=== PATIENT | female | born 2005 | race Caucasian/White ===

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

== ENCOUNTER 2024-01-16 06:36 | Emergency (ER) | payer MEDICAID, SELFPAY ==
--- NOTE | ~2024-01-16 | XR_ITS ---
EXAMINATION: XR ANKLE, LEFT CLINICAL INFORMATION: Left ankle pain COMPARISON: Left ankle x-ray on 07/14/2016 TECHNIQUE: AP, lateral, and mortise views of the left ankle. FINDINGS: BONES: Bony structures are intact. There is no focal bone destruction or periosteal reaction seen. JOINTS: Alignment of joints is normal. SOFT TISSUE: Soft tissue is normal. No radiopaque foreign body or abnormal air collection is seen. XR/XR ankle LT 2V IMPRESSION: 1. Normal x-rays of left ankle. No fracture or dislocation or signs of osteomyelitis are found.
[2024-01-16 06:42] VITALS: BP 112/83; PULSE 70; RESP 18; TEMP 36.6; O2SAT 99; BMI 29.4
--- NOTE | 2024-01-16 07:02 | PC.NURSE ---
micha arrives via external triage with cc of left ankle pain. patient states she rolled her ankle on monday and since then it has become swollen and painful to the touch. patient provided with ice pack, CMS in tact, foot elevated by this RN with towel roll. offering no other complaints at this time. awaiting MD hoover
--- OUTSIDE RECORDS SUMMARY | 2024-01-16 07:03 | XMS_ITS | Continuity of Care Document ---
Author Organization [facility] Address [address] [place] [address]- Care Team Providers Care Visitor Services Technician Name Role Phone Margarita Anneliese ASKEW Primary Care Physician [phone] Encounter [facility] Date(s): 07/22/21 - 08/21/21 [facility] [address] [place] [id number]- Attending Physician: Mohinder Vicente Admitting Physician: Mohinder Vicente Referring Physician: AdmtrMohinder Allergies, Adverse Reactions, Alerts Substance Reaction Severity Status aspirin Active Immunizations Given and Recorded Vaccine Date Status Refusal Reason Human Papillomavirus Vaccine 10/20/15 Given Meningococcal Conjugate Vaccine 10/20/15 Given tetanus/diphtheria/pertussis, acel(Tdap) 10/20/15 Given influenza virus vaccine, inactivated 04/07/15 Give n influenza virus vaccine, inactivated 08/18/14 Give n Hepatitis A Pediatric Vaccine 01/13/11 Recorded Hepatitis A Pediatric Vaccine 09/15/05 Recorded diphtheria/tetanus/pertussis, acel(DTaP) 10/15/08 Recorded diphtheria/tetanus/pertussis, acel(DTaP) 12/16/05 Recorded diphtheria/tetanus/pertussis, acel(DTaP) 03/21/05 Recorded diphtheria/tetanus/pertussis, acel(DTaP) 01/19/05 Recorded diphtheria/tetanus/pertussis, acel(DTaP) 04 Recorded Varicella Virus Vaccine 09/19/08 Recorded Varicella Virus Vaccine 09/15/05 Recorded Measles/Mumps/Rubella Virus Vaccine 09/19/08 Recor ded Measles/Mumps/Rubella Virus Vaccine 09/15/05 Recor ded Poliovirus Vaccine, Inactivated 09/19/08 Recorded Poliovirus Vaccine, Inactivated 03/21/05 Recorded Poliovirus Vaccine, Inactivated 01/19/05 Recorded Poliovirus Vaccine, Inactivated 04 Recorded haemophilus b conjugate (PRP-OMP)vaccine 12/16/05 Recorded haemophilus b conjugate (PRP-OMP)vaccine 01/19/05 Recorded haemophilus b conjugate (PRP-OMP)vaccine 04 Recorded pneumococcal 7-valent vaccine 12/16/05 Recorded pneumococcal 7-valent vaccine 03/21/05 Recorded pneumococcal 7-valent vaccine 01/19/05 Recorded pneumococcal 7-valent vaccine 04 Recorded hepatitis B pediatric vaccine 05/19/05 Recorded hepatitis B pediatric vaccine 04 Recorded hepatitis B pediatric vaccine 04 Recorded Medications Advair HFA 115 mcg / 21 mcg 2 puffs, Inhalation, 2 times a day, # 1 each, 2 Refills, Maintenance, 05/26/21 14:41:00 EST, Aerosol, [facility]/pharmacy #[id number], Partial fill upon patient request if the prescription is for a schedule II opioid drug., 2 puffs Inhalation 2 times a day, 159.5,... Start Date: 05/26/21 Status: Ordered Aerochamber w/Mask (Medium) See Instructions, # 2 each, Refills 0, Tot. Refills 0, Maintenance, use with albuterol inhaler as needed, 09/22/14 13:36:23, Compound Start Date: 09/22/14 Status: Ordered cetirizine 10 mg oral tablet 1 tablet = 10 mg, By Mouth, Daily, # 30 tablet, 2 Refills, Maintenance, 11/03/20 15:43:00 EDT, Tablet, [facility]/pharmacy #[id number], 159.5, cm, 11/03/20 10:56:00 EDT, Height, 70.2, kg, 11/03/20 10:56:00 EDT, Dry Weight Start Date: 11/03/20 Status: Ordered fluticasone 50 mcg/inh nasal spray See Instructions, SPRAY 1 SPRAY INTO EACH NOSTRIL EVERY MORNING, # 16 mL, 2 Refills, [id number], 30, SPRAY 1 SPRAY INTO EACH NOSTRIL EVERY MORNING, 159.5, cm, 11/03/20 10:56:00 EDT, Height, 70.2, kg, 11/03/20 10:56:00 EDT, Dry Weight Start Date: 08/17/21 Status: Ordered Hydrocerin topical lotion 1 application, Topically, 2 times a day, PRN for dry skin, # 480 mL, 0 Refills, Maintenance, 09/24/15 11:33:38, Lotion, 1 application Topically 2 times a day,PRN:for dry skin Start Date: 09/24/15 Status: Ordered montelukast 5 mg oral tablet, chewable 1, tablet, By Mouth, Daily in PM, CHEW., # 30 tablet, Refills 1, Tot. Refills 0, Maintenance, 04/24/20 15:06:00 EST, Route to Pharmacy Electronically, [id number], 159.5, cm, 04/02/20 11:32:00 EDT, Height, 70.2, kg, 04/02/20 11:32:00 EDT, Dry Weight Start Date: 04/24/20 Status: Ordered multivitamin with fluoride Multiple Vitamins with Fluoride 1 mg oral tablet, chewable 1 tablet, Chew, Daily, # 90 tablet, 4 Refills, Maintenance, 10/20/15 14:15:55, Chew Tablet, 1 tablet Chew Daily Start Date: 10/20/15 Status: Ordered ProAir HFA 90 mcg/inh inhalation aerosol 2 puffs, Inhalation, Every 6 hours, PRN Wheezing/Shortness of Breath, # 1 each, 1 Refills, Maintenance, 04/27/21 10:13:00 EST, [facility]/pharmacy #[id number], brand names covered, 2 puffs Inhalation Every 6 hours,PRN:Wheezing/Shortness of Breath, 159.5, cm, 11/03... Start Date: 04/27/21 Status: Ordered Problem List Condition Effective Dates Status Health Status Inform ant Asthma(Confirmed) Active Social History Social History Type Response Smoking Status Never smoker; Tobacc o user in household: Yes entered on: 09/24/15 Sex
--- OUTSIDE RECORDS SUMMARY | 2024-01-16 07:03 | XMS_ITS | Continuity of Care Document ---
Author Organization [facility] Address [address] [place] [address]- Care Team Providers Care Automotive Sales Representative Name Role Phone Margarita Anneliese ASKEW Primary Care Physician [facility]s): 07[facility]07[facility]20 - 08/06/20 [facility] [address] [place] [address]- Attending Physician: Mohinder Vicente Admitting Physician: AdmtrMohinder Referring Physician: AdmtrMohinder Allergies, Adverse Reactions, Alerts [...] day, # 1 each, 2 Refills, Maintenance, 07/07/20 14:20:00 EST, Aerosol, [facility]/pharmacy #[id number], 2 puffs Inhalation 2 times a day, 159.5, cm, 07/07/20 12:25:00 EST, Height, 70.2, kg, 07/07/20 12:25:00 EST, Dry Weight Start Date: 07/07/20 Status: Ordered Aerochamber w/Mask (Medium) See Instructions, # 2 each, Refills 0, Tot. Refills 0, Maintenance, use with albuterol inhaler as needed, 09/22/14 13:36:23, Compound Start Date: 09/22/14 Status: Ordered albuterol CFC free 90 mcg/inh inhalation aerosol See Instructions, 2-6 puffs Inhalation every 4hrs as needed, # 1 each, Refills 0, Tot. Refills 0, Maintenance, 09/12/18 8:48:00 EDT, Instructions Replace Required Details, Route to Pharmacy Electronically, [id number], [facility]/pha... Start Date: 09/12/18 Status: Ordered cetirizine 10 mg oral tablet 1 tablet = 10 mg, By Mouth, Daily, # 30 tablet, 2 Refills, Maintenance, 08/05/20 16:12:00 EST, Tablet, [facility]/pharmacy #[id number], 159.5, cm, 07/07/20 12:25:00 EST, Height, 70.2, kg, 01/19/21 12:25:00 EST, Dry Weight Start Date: 08/05/20 Status: Ordered Hydrocerin topical lotion 1 application, [...] 04/24/20 15:06:00 EST, Route to Pharmacy Electronically, [id number], 159.5, cm, 04/02/20 11:32:00 EDT, Height, 70.2, kg, 04/02/20 11:32:00 EDT, Dry Weight Start Date: 04/24/20 Status: Ordered multivitamin with fluoride Multiple Vitamins with Fluoride 1 mg oral tablet, chewable 1 tablet, Chew, Daily, # 90 tablet, 4 Refills, Maintenance, 10/20/15 14:15:55, Chew Tablet, 1 tablet Chew Daily Start Date: 10/20/15 Status: Ordered Problem List Condition Effective Dates Status Health Status Inform ant Asthma(Confirmed) Active Social History Social History Type Response Smoking Status Never smoker; Tobacc o user in household: Yes entered on: 09/24/15 Sex
--- OUTSIDE RECORDS SUMMARY | 2024-01-16 07:04 | XMS_ITS | Continuity of Care Document ---
Author Organization [facility] Address [address] [place] [address]- Care Team Providers Care Evening Or Night Nurse Supervisor Name Role Phone Anneliese Avila MD Primary Care Physician [facility]): [facility] - 01/01/20 [facility] [address] [place] [id number]- [facility] Attending Physician: Travis ASKEW, Esra Allergies, [...] day, # 1 each, 2 Refills, Maintenance, 12/25/19 15:06:00 EDT, Aerosol, [facility]/pharmacy #[id number], 2 puffs Inhalation 2 times a day, 159.5, cm, 07/17/19 20:43:00 EST, Height, 70.2, kg, 07/17/19 20:43:00 EST, Dry Weight Start Date: 12/25/19 Status: Ordered Aerochamber w/Mask (Medium) See Instructions, [...] Replace Required Details, Route to Pharmacy Electronically, [id number], [facility]/pha... Start Date: 09/12/18 Status: Ordered cetirizine 10 mg oral tablet 1 tablet = 10 mg, By Mouth, Daily, # 30 tablet, 2 Refills, Maintenance, 12/25/19 15:06:00 EDT, Tablet, [facility]/pharmacy #[id number], 159.5, cm, 07/17/19 20:43:00 EST, Height, 70.2, kg, 07/17/19 20:43:00 EST, Dry Weight Start Date: 12/25/19 Status: Ordered Hydrocerin topical lotion 1 application, Topically, 2 times a day, PRN for dry skin, # 480 mL, 0 Refills, Maintenance, 09/24/15 11:33:38, Lotion, 1 application Topically 2 times a day,PRN:for dry skin Start Date: 09/24/15 Status: Ordered montelukast 5 mg oral tablet, chewable 5 mg, 1, tablet, Chew, Daily in PM, # 30 tablet, Refills 2, Tot. Refills 2, Maintenance, 12/25/19 15:06:00 EDT, Route to Pharmacy Electronically, [facility]/pharmacy #[id number], 159.5, cm, 07/17/19 20:43:00 EST,Height, 70.2, kg, 07/17/19 20:43:00 EST, Dry Weight Start Date: 12/25/19 Status: Ordered multivitamin with fluoride Multiple Vitamins [...]
--- OUTSIDE RECORDS SUMMARY | 2024-01-16 07:04 | XMS_ITS | Continuity of Care Document ---
Author Organization [facility] Address [address] [place] [address]- Care Team Providers Care Hand Turner Name Role Phone Anneliese Avila MD Primary Care Physician [facility]): 06[facility]19 - 07/27/19 [facility] [address] [place] [address]- [facility] Attending Physician: Travis ASKEW, Esra Allergies, [...] 2 Refills, Maintenance, 06/27/19 12:05:00 EST, Aerosol, [facility]/pharmacy #[id number], 2 puffs Inhalation 2 times a day, 156.3, cm, 06/27/19 11:41:00 EST, Height, 66.9, kg, 06/27/19 11:41:00 EST, Dry Weight Start Date: 06/27/19 Status: Ordered Aerochamber w/Mask (Medium) See Instructions, [...] Replace Required Details, Route to Pharmacy Electronically, [id number], [facility]/pha... Start Date: 09/12/18 Status: Ordered cetirizine 10 mg oral tablet 1 tablet = 10 mg, By Mouth, Daily, # 30 tablet, 2 Refills, Maintenance, 06/27/19 12:05:00 EST, Tablet, [facility]/pharmacy #[id number], 156.3, cm, 06/27/19 11:41:00 EST, Height, 66.9, kg, 06/27/19 11:41:00 EST, Dry Weight Start Date: 06/27/19 Status: Ordered Hydrocerin topical lotion 1 application, [...] 06/27/19 12:05:00 EST, Route to Pharmacy Electronically, [facility]/pharmacy #[id number], 156.3, cm, 06/27/19 11:41:00 EST,Height, 66.9, kg, 06/27/19 11:41:00 EST, Dry Weight Start Date: 06/27/19 Status: Ordered multivitamin with fluoride Multiple Vitamins [...]
--- OUTSIDE RECORDS SUMMARY | 2024-01-16 07:04 | XMS_ITS | Continuity of Care Document ---
Author Organization [facility] Address [address] [place] [address]- Care Team Providers Care Ornamental Painter Name Role Phone Anneliese Avila MD Primary Care Physician [facility]): 12[facility]19 - 01/24/20 [facility] [address] [place] [address]- [facility] Attending Physician: Admfaye, Mohinder Admitting Physician: AdmtrMohinder Referring Physician: Admtr, Ar8 Allergies, Adverse Reactions, Alerts Substance Reaction Severity [...] 2 Refills, Maintenance, 12/25/19 15:06:00 EDT, Aerosol, [facility]/pharmacy #[id number], 2 puffs Inhalation 2 times a [...] Replace Required Details, Route to Pharmacy Electronically, [id number], [facility]/pha... Start Date: 09/12/18 Status: Ordered cetirizine 10 mg oral tablet 1 tablet = 10 mg, By Mouth, Daily, # 30 tablet, 2 Refills, Maintenance, 12/25/19 15:06:00 EDT, Tablet, [facility]/pharmacy #[id number], 159.5, cm, 07/17/19 20:43:00 EST, Height, [...] 12/25/19 15:06:00 EDT, Route to Pharmacy Electronically, [facility]/pharmacy #[id number], 159.5, cm, 07/17/19 20:43:00 EST,Height, 70.2, [...]
--- OUTSIDE RECORDS SUMMARY | 2024-01-16 07:04 | XMS_ITS | Continuity of Care Document ---
Author Organization [facility] Address [address] [place] [id number]- Care Team Providers Care Biomedical Equipment Technician Name Role Phone Margarita Anneliese ASKEW Primary Care Physician Encounter [facility] Date(s): 07/17/19 - 07/17/[address] [address]- [facility] Discharge Disposition: A-D/C Home Attending Physician: El Srinivasan MD Admitting Physician: El Srinivasan MD Referring Physician: Not on Staff, Referring MD Allergies, Adverse Reactions, Alerts Substance Reaction Severity [...] 2 Refills, Maintenance, 06/27/19 12:05:00 EST, Aerosol, [facility]/pharmacy #[id number], 2 puffs Inhalation 2 times [...] Replace Required Details, Route to Pharmacy Electronically, [id number], [facility]/pha... Start Date: 09/12/18 Status: Ordered cetirizine 10 mg oral tablet 1 tablet = 10 mg, By Mouth, Daily, # 30 tablet, 2 Refills, Maintenance, 06/27/19 12:05:00 EST, Tablet, [facility]/pharmacy #[id number], 156.3, cm, 06/27/19 11:41:00 EST, Height, 66.9, kg, 06/27/19 11:41:00 EST, Dry Weight Start Date: 06/27/19 Status: Ordered Hydrocerin topical lotion 1 application, Topically, 2 times a day, PRN for dry skin, # 480 mL, 0 Refills, Maintenance, 09/24/15 11:33:38, Lotion, 1 application Topically 2 times a day,PRN:for dry skin Start Date: 09/24/15 Status: Ordered ibuprofen 600 mg oral tablet 600 mg, 1, tablet, By Mouth, 4 times a day, PRN, for 5 days, # 20 tablet, Refills 0, Tot. Refills 0, Acute 07/22/19 21:10:00 EST, Temperature, 07/17/19 21:10:00 EST, Route to Pharmacy Electronically,[facility]/pharmacy #[id number], 159.5, cm, 07/17/19 20:43:00 ES... Start Date: 07/17/19 Stop Date: 07/22/19 Status: Ordered montelukast 5 mg oral tablet, chewable 5 mg, 1, tablet, Chew, Daily in PM, # 30 tablet, Refills 2, Tot. Refills 2, Maintenance, 06/27/19 12:05:00 EST, Route to Pharmacy Electronically, [facility]/pharmacy #207, 156.3, cm, 06/27/19 11:41:00 EST,Height, 66.9, kg, 06/27/19 11:41:00 EST, Dry Weight Start Date: 06/27/19 Status: Ordered multivitamin with fluoride Multiple Vitamins with Fluoride 1 mg oral tablet, chewable 1 tablet, Chew, Daily, # 90 tablet, 4 Refills, Maintenance, 10/20/15 14:15:55, Chew Tablet, 1 tablet Chew Daily Start Date: 10/20/15 Status: Ordered predniSONE 20 mg oral tablet 3 tablet = 60 mg, By Mouth, Daily, for 4 days, # 12 tablet, 0 Refills, Acute 07/21/19 21:11:00 EST,07/17/19 21:11:00 EST, Tablet, [facility]/pharmacy #[id number], 159.5, cm, 07/17/19 20:43:00 EST, Height, 70.2, kg, 07/17/19 20:43:00 EST, Dry Weight Start Date: 07/17/19 Stop Date: 07/21/19 Status: Ordered Problem List Condition Effective Dates Status Health Status Inform ant Asthma(Confirmed) Active Vital Signs Most recent to oldest [Reference Range]: 1 2 Height 159.5 cm (07/17/19 8:43 PM) 159.5 cm (07/17/19 6:30 PM) Weight 70.2 kg (07/17/19 8:43 PM) 70.2 kg (07/17/19 6:30 PM) Oxygen Saturation [94-100 %] 100 % (07/17/19 8:43 PM) 100 % (07/17/19 6:30 PM) Pulse Rate [55-90 bpm] 92 bpm *H* (07/17/19 8:43 PM) 92 bpm *H* (07/17/19 6:30 PM) Body Mass Index [18.5-24.99] 27.59 *H* (07/17/19 8:43 PM) 27.59 *H* (07/17/19 6:30 PM) Blood Pressure [80-130/50-80 mm Hg] 114/ 82mm Hg (07/17/19 8:43 PM) 117/68mm Hg (07/17/19 6:30 PM) Respiratory Rate [16-30 br/min] 24 br/mi n (07/17/19 8:43 PM) 18 br/min (07/17/19 6:30 PM) Temperature [96.8-100.4 DegF] 98.3 DegF (07/17/19 8:43 PM) 98.3 DegF (07/17/19 6:30 PM) Mode of Delivery (Oxygen) Room air (07/17/19 8:43 PM) Room air (07/17/19 6:30 PM) Blood pressure sites Arm, left (07/17/19 8:43 PM) Arm, left (07/17/19 6:30 PM) Temperature Route Oral (07/17/19 8:43 PM) Oral (07/17/19 6:30 PM) Dry Weight 70.2 kg (07/17/19 8:43 PM) 70.2 kg (07/17/19 6:30 PM) Weight Obtained Via Standing scale (07/17/19 6:30 PM) Dry Weight Obtained Via Standing scale (07/17/19 6:30 PM) Social History Social History Type Response Smoking Status Never smoker; Tobacc o user in household: Yes entered on: 09/24/15 Sex
--- OUTSIDE RECORDS SUMMARY | 2024-01-16 07:04 | XMS_ITS | Continuity of Care Document ---
Author Organization [facility] Address [address] [place] [address]- Care Team Providers Care Insurance Loss Control Surveyor Name Role Phone Anneliese Avila MD Primary Care Physician 1979 [facility] Date[facility]s): 06/27/19 - 07/04/19 [facility] [address] [place] [address]- [facility] Attending Physician: Wan Glass MD Referring Physician: Anneliese Avila MD Allergies, Adverse Reactions, Alerts Substance Reaction [...] 2 Refills, Maintenance, 06/27/19 12:05:00 EST, Aerosol, [facility]/pharmacy #[id number], 2 puffs Inhalation 2 times [...] Replace Required Details, Route to Pharmacy Electronically, [id number], [facility]/pha... Start Date: 09/12/18 Status: Ordered cetirizine 10 mg oral tablet 1 tablet = 10 mg, By Mouth, Daily, # 30 tablet, 2 Refills, Maintenance, 06/27/19 12:05:00 EST, Tablet, [facility]/pharmacy #[id number], 156.3, cm, 06/27/19 11:41:00 EST, [...] 06/27/19 12:05:00 EST, Route to Pharmacy Electronically, [facility]/pharmacy #[id number], 156.3, cm, 06/27/19 11:41:00 EST,Height, 66.9, [...] Most recent to oldest [Reference Range]: 1 Height 156.3 cm (06/27/19 11:41 AM) Weight 66.9 kg (06/27/19 11:41 AM) Oxygen Saturation [94-100 %] 99 % (06/27/19 11:41 AM) Pulse Rate [55-90 bpm] 98 bpm *H* (06/27/19 11:41 AM) Body Mass Index [18.5-24.99] 27.38 *H* (06/27/19 11:41 AM) Blood Pressure [80-130/50-80 mm Hg] 112/ 68mm Hg (06/27/19 11:41 AM) Respiratory Rate [16-30 br/min] 16 br/mi n (06/27/19 11:41 AM) Mode of Delivery (Oxygen) Room air (06/27/19 11:41 AM) Blood pressure sites Arm, right (06/27/19 11:41 AM) Dry Weight 66.9 kg (06/27/19 11:41 AM) Social History Social History Type Response Smoking Status Never smoker; Tobacc o user in household: Yes entered on: 09/24/15 Sex
--- OUTSIDE RECORDS SUMMARY | 2024-01-16 07:04 | XMS_ITS | Continuity of Care Document ---
Author Organization [facility] Pediatric [facility] ulmonary Medicine Address [address] [place] [address]- Care Team Providers Care Beverage Specialist Name Role Phone Margarita Anneliese ASKEW Primary Care Physician [phone] [facility]s): 04/26/21 - 05/26/21 [facility] [address] [place] [address] [place] Allergies, Adverse Reactions, Alerts Substance Reaction Severity [...] 2 Refills, Maintenance, 05/26/21 14:41:00 EST, Aerosol, [facility]/pharmacy #[id number], Partial fill upon patient request if [...] 2 Refills, Maintenance, 11/03/20 15:43:00 EDT, Tablet, [facility]/pharmacy #[id number], 159.5, cm, 11/03/20 10:56:00 EDT, Height, 70.2, kg, 11/03/20 10:56:00 EDT, Dry Weight Start Date: 11/03/20 Status: Ordered fluticasone 50 mcg/inh nasal spray 1 sprays, Nares, Both, Daily in AM, # 1 each, 2 Refills, Maintenance, 05/26/21 14:40:00 EST, [place],[facility]/pharmacy #[id number], Partial fill upon patient request if the prescription is for a schedule II opioid drug., 1 sprays Nares, Both Daily in AM, 159.5, c... Start Date: 05/26/21 Status: Ordered Hydrocerin topical lotion 1 application, [...] 04/24/20 15:06:00 EST, Route to Pharmacy Electronically, [id number], 159.5, cm, 04/02/20 11:32:00 EDT, Height, 70.2, [...] each, 1 Refills, Maintenance, 04/27/21 10:13:00 EST, [facility]/pharmacy #[id number], brand names covered, 2 puffs Inhalation Every 6 hours,PRN:Wheezing/Shortness of Breath, 159.5, cm, 11/03... Start Date: 04/27/21 Status: Ordered Problem List Condition Effective Dates Status Health Status Inform ant Asthma(Confirmed) Active Social History Social History Type Response Smoking Status Never smoker; Tobacc o user in household: Yes entered on: 09/24/15 Sex
--- OUTSIDE RECORDS SUMMARY | 2024-01-16 07:04 | XMS_ITS | Continuity of Care Document ---
Author Organization [facility] Address [address] [place] [address]- Care Team Providers Care Dry Heat Room Attendant Name Role Phone Anneliese Avila MD Primary Care Physician [facility]s): 06/27/19 - 10/03/19 [facility] [address] [place] [id number]- [facility] Attending Physician: Travis ASKEW, Esra [...] day, # 1 each, 2 Refills, Maintenance, 09/26/19 11:06:00 EDT, Aerosol, [facility]/pharmacy #[id number], 2 puffs Inhalation 2 times a day, 159.5, cm, 07/17/19 20:43:00 EST, Height, 70.2, kg, 07/17/19 20:43:00 EST, Dry Weight Start Date: 09/26/19 Status: Ordered Aerochamber w/Mask (Medium) See Instructions, [...] Replace Required Details, Route to Pharmacy Electronically, [id number], [facility]/pha... Start Date: 09/12/18 Status: Ordered cetirizine 10 mg oral tablet 1 tablet = 10 mg, By Mouth, Daily, # 30 tablet, 2 Refills, Maintenance, 09/26/19 11:06:00 EDT, Tablet, [facility]/pharmacy #[id number], 159.5, cm, 07/17/19 20:43:00 EST, Height, 70.2, kg, 07/17/19 20:43:00 EST, Dry Weight Start Date: 09/26/19 Status: Ordered Hydrocerin topical lotion 1 application, Topically, 2 times a day, PRN for dry skin, # 480 mL, 0 Refills, Maintenance, 09/24/15 11:33:38, Lotion, 1 application Topically 2 times a day,PRN:for dry skin Start Date: 09/24/15 Status: Ordered montelukast 5 mg oral tablet, chewable 5 mg, 1, tablet, Chew, Daily in PM, # 30 tablet, Refills 2, Tot. Refills 2, Maintenance, 09/26/19 11:06:00 EDT, Route to Pharmacy Electronically, [facility]/pharmacy #[id number], 159.5, cm, 07/17/19 20:43:00 EST,Height, 70.2, kg, 07/17/19 20:43:00 EST, Dry Weight Start Date: 09/26/19 Status: Ordered multivitamin with fluoride Multiple Vitamins [...]
--- OUTSIDE RECORDS SUMMARY | 2024-01-16 07:04 | XMS_ITS | Continuity of Care Document ---
Author Organization [facility] Pediatric [facility] ulmonary Medicine Address [address] [place] [address]- Care Team Providers Care Sap Abap Developer Name Role Phone Anneliese Avila MD Primary Care Physician [facility]): 09[facility]26[facility]19 - 10/03/19 [facility] [address] [place] [address]- [facility] Attending Physician: Travis ASKEW, Esra Allergies, Adverse [...] 2 Refills, Maintenance, 09/26/19 11:06:00 EDT, Aerosol, [facility]/pharmacy #[id number], 2 puffs Inhalation 2 times [...] Replace Required Details, Route to Pharmacy Electronically, [id number], [facility]/pha... Start Date: 09/12/18 Status: Ordered cetirizine 10 mg oral tablet 1 tablet = 10 mg, By Mouth, Daily, # 30 tablet, 2 Refills, Maintenance, 09/26/19 11:06:00 EDT, Tablet, [facility]/pharmacy #[id number], 159.5, cm, 07/17/19 20:43:00 EST, [...] 09/26/19 11:06:00 EDT, Route to Pharmacy Electronically, [facility]/pharmacy #[id number], 159.5, cm, 07/17/19 20:43:00 EST,Height, [...]
--- NOTE | 2024-01-16 09:27 | ED_ITS ---
HPI - Extremity Injury (Lower) General Chief Complaint: Extremity Injury, Lower Stated Complaint: Left twisted foot Time Seen by Provider: 01/16/24 07:01 Source: patient Limitations: no limitations History of Present Illness ED Provider: Adrienne Mcqueen PA-C HPI Narrative: 18-year-old female presents with left foot pain x1 day. Patient states she slipped and fell, twisting her ankle. Patient states she has been able to bear weight, however it is uncomfortable. Related Data Previous Rx's ?Medication ?Instructions ?Recorded albuterol sulfate 2.5 mg/3 mL 2.5 mg (3 mL) inhalation Q4-6H PRN 05/26/21 (0.083 %) solution for nebulization shortness of breath or wheezing #90 mL albuterol sulfate 90 mcg/actuation 2 puff inhalation Q4-6H PRN 05/26/21 aerosol inhaler (ProAir HFA) Wheezing #8.5 grams prednisone 20 mg tablet 40 mg (2 x 20 mg) PO DAILY #10 tabs 05/26/21 Allergies Allergy/AdvReac Type Severity Reaction Status Date / Time aspirin [ASA] Allergy Unknown UNKNOWN Verified 01/16/24 06:44 Review of Systems Constitutional: Constitutional: Denies fever(s) Musculoskeletal: Musculoskeletal: Reports arthralgias, Denies numbness and Denies tingling Integumentary/Breasts: Skin/Breast: Denies rash Neurologic: Denies numbness and Denies tingling PMFSH Past Medical History Attestation statement: The following information was validated with the patient. Medical History Asthma Social History Social History (System 11/16/23 @ 15:54 by Charlotte Burnham) Smoked in Last 30 Days: No Advance Directives: No Patient : No Physical Exam Vital Signs: Vital Signs: Last Vital Signs Temp 97.8 F 01/16/24 06:42 Pulse 70 01/16/24 06:42 Resp 18 01/16/24 06:42 BP 112/83 01/16/24 06:42 Pulse Ox 99 01/16/24 06:42 O2 Del Method Room Air 01/16/24 06:42 BMI result Body Mass Index 29.4 Const: General: cooperative and healthy appearing Orientation/consciousness: patient oriented x3 Resp: Other: Nonlabored respirations Cardio: Other: Normal peripheral perfusion Skin: Other: Warm dry no rash Neuro: General: patient oriented x3, no focal motor deficits and CN's II-XI intact bilaterally Extrem: Other: Patient able to flex and extend the ankle, mild swelling noted along lateral aspect mild ecchymosis Psych: Other: Calm cooperative Course Course Course Narrative: 18-year-old female presents with left foot pain x1 day. Patient states she slipped and fell, twisting her ankle. Patient states she has been able to bear weight, however it is un No chronic issues to address History: Per patient I have considered the following differential diagnoses: Fracture, dislocation, sprain, contusion Plan: X-ray ordered, reviewed negative for fracture, sitting with rice measures and home care instructions she can follow up with her primary care provider as needed I have independently reviewed the following tests: X-ray left ankle: No fracture no dislocation Discharge Plan Discharge Clinical Impression: Ankle sprain and strain Patient Disposition: Home, Self-Care Instructions: Ankle Sprain (ED), R.I.C.E. Treatment (ED) Additional Instructions: The x-ray was negative for fracture or dislocation. You have a sprain. See home care instructions. Bear weight as tolerated, use the crutches as needed. Keep a compression sleeve over the ankle to offer support to the joint. While seated, elevate the leg. Apply ice to the area several times a day for 10-15 minutes each time. You can use [id number] ibuprofen 600 mg taken every 6 hours with food, alternated with the use of [id number]-wwfmtyc Tylenol 1000 mg taken every 8 hours, as needed for pain. Follow up with your primary care provider as needed Prescriptions: No Action prednisone 20 mg tablet 40 mg PO DAILY Qty: 10 0RF albuterol sulfate [ProAir HFA] 90 mcg/actuation HFA aerosol inhaler 2 puff inhalation Q4-6H PRN (Reason: Wheezing) Qty: 8.5 0RF albuterol sulfate 2.5 mg /3 mL (0.083 %) solution for nebulization 2.5 mg inhalation Q4-6H PRN (Reason: shortness of breath or wheezing) Qty: 90 0RF Print Language: [place] Islander
[2024-01-16 09:46] VITALS: BP 112/83; PULSE 70; RESP 18; TEMP 36.6; O2SAT 99
== END 2024-01-16 09:53 | disposition home or self-care (01) ==
PROVIDERS: Emergency Provider Emergency Medicine
DX: S93.402A Sprain of unspecified ligament of left ankle, initial encounter (principal); X50.1XXA Overexertion from prolonged static or awkward postures, initial encounter; Y93.89 Activity, other specified; Y92.89 Other specified places as the place of occurrence of the external cause; Y99.8 Other external cause status
CPT/HCPCS: 73600; 99283; 99284

== ENCOUNTER 2024-07-04 09:54 | Outpatient (REF) | payer MEDICAID, SELFPAY ==
[2024-07-04 11:16] LABS: MANUAL DIFF FLAG NO
[2024-07-04 11:23] LABS: Basophils Absolute Auto 0.1 X10*3/uL (0.0-0.2); Basophils Percent Auto 0.6 % (0-2); Eosinophils Absolute Auto 0.3 X10*3/uL (0.0-0.4); Eosinophils Percent Auto 3.4 % (0-4); Hematocrit 44.4 % (37.0-47.0); Hemoglobin 14.6 g/dl (12.0-16.0); Imm Gran Abs Auto 0.03 X10*3/uL (0.00-0.03); Imm Gran Pct Auto 0.4 % (0.0-0.4); Lymphocytes Absolute Auto 0.7 X10*3/uL (1.2-4.9); Mean Corpuscular HGB Conc 32.9 g/dl (31.0-35.0); Mean Corpuscular Hemoglobin 27.4 pg (27.0-33.0); Mean Corpuscular Volume 83.5 fL (80.0-98.0); Monocytes Absolute Auto 0.6 X10*3/uL (0.1-1.2); Monocytes Percent Auto 6.8 % (2-11); Neutrophils Absolute Auto 6.4 x10*3/uL (2.0-8.3); Neutrophils Percent Auto 79.8 % (45-73); Platelet Count 343 X10*3/uL (160-400); Red Blood Count 5.32 X10*6/uL (4.20-5.50)
[2024-07-04 12:29] LABS: Alanine Aminotransferase 17 U/L (0-31); Albumin Level 4.4 g/dL (3.5-5.0); Alkaline Phosphatase 55 U/L (39-117); Amylase 59 U/L (28-100); Anion Gap 9 (12-20); Aspartate Amino Transferase 19 U/L (5-31); Bilirubin Direct < 0.2 mg/dL (0.0-0.5); Bilirubin Total 0.2 mg/dL (0.0-1.0); Blood Urea Nitrogen 4 mg/dL (9-16); Calcium 9.5 mg/dL (8.4-10.2); Carbon Dioxide 25 mmol/L (22-29); Chloride 108 mmol/L (96-108); Estimated Glomerular Filt Rate > 60; Glucose Random 85 mg/dL (60-115); Lipase 18 U/L (8-78); Potassium 4.3 mmol/L (3.3-5.1); Sodium 138 mmol/L (135-145); Total Protein 8.4 g/dL (6.5-8.0)
[2024-07-04 14:54] LABS: Bacterial Vaginosis PCR POSITIVE (Negative); Candida Group PCR DETECTED (Not Detect); Candida glab krusei PCR NOT DETECTED (Not Detect); Trichomonas vaginalis PCR NOT DETECTED (Not Detect)
[2024-07-04 15:24] LABS: CT PCR NOT DETECTED (Not Detect.); NG PCR NOT DETECTED (Not Detect.)
== END 2024-07-04 09:55 | disposition home or self-care (01) ==
LOC: HO.HHCL 09:54
PROVIDERS: Visit Provider Family Medicine
DX: R10.30 Lower abdominal pain, unspecified (principal); J06.9 Acute upper respiratory infection, unspecified
CPT/HCPCS: 36415; 80048; 80076; 81515; 82150; 83690; 85025; 87086; 87491; 87591

== ENCOUNTER 2025-01-22 11:46 | Outpatient (REF) | payer MEDICAID, SELFPAY ==
--- OUTSIDE RECORDS SUMMARY | 2025-01-22 12:31 | XMS_ITS | Encounter Summary ---
Author Organization [employer] Address [address] [place] [address] Care Team Providers Care Ship Design Teacher Name Role Phone Janki Reyes NP Primary Care Provider [phone] Encounter Details Date Type Department Care Team (Latest Contact Info) Description 01/22/2025 Travel Social History Tobacco Use Types Packs/Day Years Used Date Smoking Tobacco: Never Smokeless Tobacco: Never Alcohol Use Standard Drinks/Week Comments Never 0 (1 standard drink = 0.6 oz pur e alcohol) socially about 2x per year Alcohol Answer Date Recorded How often do you have a drink containing alcohol ? 1 01/22/2025 How many drinks containing a lcohol do you have on a typical day when you are drinking? 0 01/22/2025 How often do you have six or more drinks on one occasion? 0 01/22/2025 Depression Answer Date Recorded Patient Health Questionnaire-9 Score 2 01/22/2025 Patient Health Questionnaire-9 Score 2 01/22/2025 Last PHQ-9: Questionnaire Data Not on file 0 01/22/2025 Housing Stability Answer Date Recorded What is your housing situation today? I have eugenio cristobal 01/15/[address] you li ve. Do you have problems with any of the following? None of the above 01/15/2025 Food Insecurity Answer Date Recorded Within the past 12 months, y ou worried that your food would run out before you got money to buy more: Never True 01/15/2025 Within the past 12 months,th e food you bought just didn't last and you didn't have enough money to get more: Never True Transportation Answer Date Recorded In the past 12 months, has l ack of transportation kept you from medical appts, meetings, work or from getting things needed for daily living? No 01/15/2025 Utilities Answer Date Recorded In the past 12 months, has t he electric, gas, oil or water company threatened to shut off services in your home? No 01/15/2025 Depression Answer Date Recorded Patient Health Questionnaire-2 Score 0 01/22/2025 Internet Access Answer Date Recorded Internet Access Q1 Yes 01/15/2025 Internet Access Q2 Not on file 01/15/2025 Comments No Sex and Gender Information Value Date Recorded Sex Assigned at Female 04/18/2022 10:29 AM EDT Legal Sex Female 10:29 AM EDT Gender Identity Female 04/18/2022 10:29 AM EDT Sexual Orientation Lesbian or Johnson 04/18/2022 10 :29 AM EDT documented as of this encounter Functional Status * Over the past 2 weeks, how often have you been bothered by any of the following problems? Question Answer Date of Assessment Author Patient Health Questionnaire -2 Score 0 01/22/2025 10:43 AM EDT Kelsie Jones MA * Little interest or pleasure in doing things Answer Date of Assessment Author Not at all 01/22/2025 10:43 AM DUSTINT Kelsie Jones MA * Feeling down, depressed, or hopeless Answer Date of Assessment Author Not at all 01/22/2025 10:43 AM Kelsie Jonas MA * Trouble falling or staying asleep, or sleeping too much Answer Date of Assessment Author Several days 01/22/2025 10:43 AM DUSTINT Kelsie Jones MA * Feeling tired or having little energy Answer Date of Assessment Author Several days 01/22/2025 10:43 AM DUSTINT Kelsie Jones MA * Poor appetite or overeating Answer Date of Assessment Author Not at all 01/22/2025 10:43 AM Kelsie Jonas MA * Feeling bad about yourself - or that you are a failure or have let yourself or your family down Answer Date of Assessment Author Not at all 01/22/2025 10:43 AM Kelsie Jonas MA * Trouble concentrating on things, such as reading the newspaper or watching television Answer Date of Assessment Author Not at all 01/22/2025 10:43 AM DUSTINT Kelsie Jones MA * Moving or speaking so slowly that other people could have noticed? Or the opposite - being so fidgety or restless that you have been moving around a lot more than usual. Answer Date of Assessment Author Not at all 01/22/2025 10:43 AM Kelsie Jonas MA * Thoughts that you would be better off or hurting yourself in some way Answer Date of Assessment Author Not at all 01/22/2025 10:43 AM Kelsie Jonas MA * Patient Health Questionnaire-9 Score Answer Date of Assessment Author 2 01/22/2025 10:43 AM Kelsie Jonas MA * How difficult have these problems made it for you to do your work, take care of things at home, or get along with other people? Answer Date of Assessment Author Not difficult at all 01/22/2025 10:43 AM EDT Kelsie Green MA * Over the last 2 weeks, how often have you been bothered by any of the following problems? Question Answer Date of Assessment Author Feeling nervous, anxious, or on edge 1 01/22/2025 10:43 AM EDT Klesie Jones MA Not being able to stop or co ntrol worrying 0 01/22/2025 10:43 AM DUSTINT Kelsie Jones MA Worrying too much about diff erent things 0 01/22/2025 10:43 AM DUSTINT Kelsie Jones MA Trouble relaxing 0 01/22/2025 10:43 AM DUSTINT Kelsie Jones MA Being so restless that it is hard to sit still 1 01/22/2025 10:43 AM DUSTINT Kelsie Jones MA Becoming easily annoyed or irritable 1 01/22/2025 10:43 AM DUSTINT Kelsie Jones MA Feeling afraid as if somethi ng awful might happen 0 01/22/2025 10:43 AM EDT Kelsie Jones MA TEJAS-7 Total Score 3 01/22/2025 10:43 AM EDT Kelsie Jones MA documented as of this encounter Plan of Treatment Not on file documented as of this encounter Visit Diagnoses Not on filedocumented in this encounter Additional Health Concerns Assessment Noted Time PHQ-9 Depression Total Score: 2 01/23/20 25 10:43 AM EDT documented as of this encounter Care Teams Ship Design Teacher Relationship Specialty Start Date End Date Janki Reyes NP [address] [place] [id number] PCP - General Family Medicine 02/21/24 documented as of this encounter
[2025-01-22 14:00] LABS: Alanine Aminotransferase 20 U/L (0-31); Albumin Level 4.5 g/dL (3.5-5.0); Alkaline Phosphatase 55 U/L (39-117); Anion Gap 12 (12-20); Aspartate Amino Transferase 23 U/L (5-31); Blood Urea Nitrogen 7 mg/dL (9-16); Calcium 8.9 mg/dL (8.4-10.2); Carbon Dioxide 26 mmol/L (22-29); Chloride 107 mmol/L (96-108); Cholesterol 146 mg/dL (<200); Estimated Glomerular Filt Rate > 60; HDL Cholesterol 38 mg/dL (>40); Hemoglobin A1C 111.5730 umol/L; Potassium 4.0 mmol/L (3.3-5.1); Sodium 141 mmol/L (135-145); Total Hemoglobin (HGBA1C) 3639.9213 umol/L; Total Protein 7.7 g/dL (6.5-8.0); Triglycerides 100 mg/dL (<150)
[2025-01-22 14:18] LABS: Syphilis Screen Nonreactive (Nonreactive)
[2025-01-23 08:03] LABS: HBS Num1 4.46 mIU/mL (0-7.99); HBc Num1 0.05 S/CO (0.00-0.79); HBsAGNum1 0.45 S/CO (0.00-0.99); HIV Num 1 0.06 S/CO (0.00-0.99); Hepatitis B Surface Antigen Negative (Negative); ~HepC Num1 0.11 S/CO (0.00-0.79); ~Hepatitis B Surface Antibody NONREACTIVE (Nonreactive); ~Hepatitis C Antibody Nonreactive (Nonreactive)
[2025-01-23 12:27] LABS: CT PCR Urine NOT DETECTED (Not Detect.); NG PCR Urine NOT DETECTED (Not Detect.)
== END 2025-01-22 11:47 | disposition home or self-care (01) ==
LOC: HO.HHCL 11:46
PROVIDERS: PCP Nurse Practitioner; Visit Provider Nurse Practitioner
DX: Z11.3 Encounter for screening for infections with a predominantly sexual mode of transmission (principal); Z11.4 Encounter for screening for human immunodeficiency virus [HIV]; Z11.59 Encounter for screening for other viral diseases; Z11.8 Encounter for screening for other infectious and parasitic diseases; E66.811 Obesity, class 1; Z68.30 Body mass index [BMI] 30.0-30.9, adult
CPT/HCPCS: 36415; 80053; 80061; 83036; 86704; 86706; 86780; 86803; 87340; 87389; 87491; 87591; 87661